=== PATIENT | female | born 1985 | race American Indian/Alaskan Native ===

== ENCOUNTER 2017-08-09 00:22 | Inpatient (IN) | payer MEDICAID ==
[2017-08-09] MEDS ORDERED: NORMOSOL-R PH 7.4 1,000 ML IV ONE (01:41)
[2017-08-09] MEDS ORDERED: XYLOCAINE 2% INFILTRATI ONE (01:42)
[2017-08-09] MEDS ORDERED: STADOL IV PRN (01:42)
[2017-08-09] MEDS ORDERED: BRETHINE SUB-Q PRN (01:42)
[2017-08-09] MEDS ORDERED: BRETHINE IVP PRN (01:42)
[2017-08-09] MEDS ORDERED: MINERAL OIL PO PRN (01:42)
[2017-08-09] MEDS ORDERED: ePHEDrine SULFATE IV PRN ×2 (01:42→04:45)
[2017-08-09] MEDS ORDERED: PITOCin/NS 20 UNIT/1000ML DRIP 20 UNITS/1,000 ML BAG IV SCH (02:00)
[2017-08-09] MEDS ORDERED: NORMOSOL-R PH 7.4 1,000 ML IV SCH (02:00)
[2017-08-09 02:12] LABS: Mean Corpuscular HGB Conc 29 % (30-34); Red Blood Count 4.06 M/mm3 (3.65-5.03)
[2017-08-09 02:16] LABS: Hematocrit 26.4 % (30.3-42.9); Hemoglobin 7.7 gm/dl (10.1-14.3); Mean Corpuscular Hemoglobin 19 pg (28-32); Mean Corpuscular Volume 65 fl (79-97); Platelet Count 202 K/mm3 (140-440); Red Cell Distribution Width 26.1 % (13.2-15.2)
[2017-08-09] MEDS ORDERED: NARCAN 2 MG/2 ML IV PRN (04:45)
--- NOTE | 2017-08-09 04:46 | Anesthesia Consultation ---
Anesthesia Consult and Med Hx Date of service: 08/09/17 - Pulmonary Exam CTA: Yes - Cardiac Exam Cardiac Exam: RRR - Pre-Operative Health Status ASA Pre-Surgery Classification: ASA2 Proposed Anesthetic Plan: Epidural, Spinal - Pulmonary Hx Smoking: No Hx Asthma: No COPD: No Hx Pneumonia: No - Cardiovascular System Hx Hypertension: No - Central Nervous System Hx Seizures: No Hx Psychiatric Problems: No - Endocrine Hx Renal Disease: No Hx End Stage Renal Disease: No Hx Hypothyroidism: No Hx Hyperthyroidism: No - Hematic Hx Anemia: Yes Hx Sickle Cell Disease: No - Other Systems Hx Alcohol Use: No
[2017-08-09] MEDS ORDERED: fentaNYL-BUPIV 2 MCG/ML-0.125% 200 MCG/100 ML BAG EPIDURAL SCH (05:00)
[2017-08-09] MEDS ORDERED: PITOCin/NS 30 UNIT/500ML 30,000 MILLIUNITS/500 ML BAG IV ONE (05:29)
--- NOTE | 2017-08-09 05:44 | History and Physical Report ---
History of Present Illness Date of examination: 08/09/17 (pt presented SROM ) Date of admission: 08/09/17 01:09 History of present illness: EDC Confirmation: 08/23/2017 Gestational Age: 9 3/7 weeks Past History : 11 Term Births: 10 Premature Births: 0 Living Children: 10 Para: 9 Mult. Births: 0 Prev : 0 Prev. attempt? 0 Aborta: 0 Elect. Ab: 0 Spont. Ab: 0 Ectopics: 0 # 1 Delivery date: 01/18/2002 Weeks Gestation: 38 labor: no Delivery type: Hours of labor: 17 Anesthesia type: IV Delivery location: [facility] Sex: Female weight: 5-5 Name: King # 2 Delivery date: 04/21/2003 Weeks Gestation: 38 labor: no Delivery type: Hours of labor: 8 Anesthesia type: IV Delivery location: [place] [facility] Sex: Female weight: 5-11 Name: Madisyn # 3 Delivery date: 11/03/2004 Weeks Gestation: 38 labor: no Delivery type: Hours of labor: 6 Anesthesia type: IV Delivery location: [facility] Sex: Female weight: 5-12 Name: Brooke # 4 Delivery date: 09/07/2005 Weeks Gestation: 38 labor: no Delivery type: Hours of labor: 8 Anesthesia type: epidural Delivery location: [facility] Sex: Female weight: 6-0 Name: Ronny # 5 Delivery date: 06/21/2006 Weeks Gestation: 38 labor: no Delivery type: Hours of labor: 9 Anesthesia type: IV Delivery location: [facility] Sex: Male weight: 5-12 Name: Marj # 6 Delivery date: 02/08/2008 Weeks Gestation: 38 labor: no Delivery type: Hours of labor: 7 Anesthesia type: IV Delivery location: [facility] Infant Sex: Female weight: 5-13 Name: Martina # 7 Delivery date: 08/16/2008 Weeks Gestation: 38 labor: no Delivery type: Hours of labor: 8 Anesthesia type: IV Delivery location: [facility] Infant Sex: Male weight: 5-11 Name: Swapnil # 8 Delivery date: 11/14/2009 Weeks Gestation: 38 labor: no Delivery type: Hours of labor: 4 Anesthesia type: none Delivery location: [facility] Inf[facility] Sex: Female weight: 5-12 Name: Roseann # 9 Delivery date: 01/01/2012 Weeks Gestation: 38 labor: no Delivery type: Hours of labor: 7 Anesthesia type: IV Delivery location: [facility] Sex: Male weight: 5-0 Name: Abby # 10 Delivery date: 03/10/2015 Weeks Gestation: 40 Delivery type: Vaginal Anesthesia type: epidural Delivery location: [facility] Inf[facility] Sex: female weight: 7.44 Comments: grandmultiparity 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 Past Medical History: Anemia migrane headaches Past Surgical History: Reviewed history from 09/06/2014 and no changes required: Negative Past Surgical History Past Medical History Abnormal PAP: negative FRIEDA Exposure: negative Infertility: negative Uterine Anomaly: negative Uterine Surgery (not C/S): negative Other Gynecologic Problems: negative Medical History Comments: migrane headaches anemia Social Hx: Patient is single Unemployed Infection History Partner hx. of genital herpes: no Varicella/Chicken Pox Status: Previous Disease Genetic History Congenital Heart Defect: Mom: no Evelia Disease: Mom: no Thalassemia Mom: no Neural Tube Defect Mom: no Down's Syndrome Mom: no Cayden-Sachs Mom: no Sickle Cell Disease/Trait Mom: no Hemophilia Mom: no Muscular Dystrophy Mom: no Cystic Fibrosis Mom: no [place] Chorea Mom: no Mental Retardation Mom: no Fragile X Mom: no Other Genetic/Chromosomal Disorder Mom: no Child w/other defect Mom: no Current Allergies (reviewed today): * TRAMADOL (Critical) Laboratory Results Date/Time Collected: 01/21/2017 Urine HCG: positive PHYSICAL EXAM HEENT: PERRLA, normal conjunctiva, external nose and nasal mucosa normal, oropharynx clear Neck/Thyroid: supple, thyroid normal Skin no significant abnormal lesions or rashes Chest: respiratory effort normal, clear to auscultation Breasts: normal without skin changes or masses CV: regular, normal S1-S2, no murmur, no rub, no gallop Abdomen: normal bowel sounds, soft, nontender, no HSM Musculoskeletal: grossly normal ROM in joints, no joint tenderness or muscle weakness Neuro: grossly normal DTRs, sensation, strength, cranial nerves Extremities: no clubbing, cyanosis, or edema 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 Vulva/Vagina: No lesions, normal BUS, normal rugae Cervix: No lesions; no cervical motion tenderness Uterus: normal size and position, midline, mobile Adnexae: no masses or tenderness Rectovaginal: no masses or tenderness Past History - Obstetrical History Expected Date of Delivery: 08/23/17 Actual Gestation: 38 Week(s) 0 Day(s) : 11 Para: 10 Number of Living Children: 10 Medications and Allergies Allergies Allergy/AdvReac Type Severity Reaction Status Date / Time No Known Allergies Allergy Verified 02/27/15 18:06 Home Medications Medication Instructions Recorded Confirmed Last Taken Type Ferrous Sulfate 1 tab PO DAILY 12/12/14 03/10/15 Unknown History Pnv,Calcium 72/Iron/Folic Acid 1 tab PO DAILY 12/12/14 03/10/15 Unknown History [Pnv Plus Multivit Tab] Ibuprofen [Motrin 800 MG tab] 800 mg PO TID PRN #30 tablet 03/11/15 Unknown Rx Active Meds: Active Medications Butorphanol Tartrate (Stadol) 2 mg IV Q2H PRN PRN Reason: Pain , Severe (7-10) Ephedrine Sulfate (Ephedrine Sulfate) 10 mg IV Q2M PRN PRN Reason: Hypotension Parenteral Electrolytes (Normosol-R Ph 7.4) 1,000 mls @ 125 mls/hr IV DIRECT JODIE Oxytocin/Sodium Chloride (Pitocin/Ns 20 Unit/1000ml Drip) 20 units in 1,000 mls @ 125 mls/hr IV DIRECT JODIE Fentanyl/Bupivacaine/Sodium Chlor (Fentanyl-Bupiv 2 Mcg/Ml-0.125%) 200 mcg in 100 mls @ 12 mls/hr EPIDURAL TITR JODIE; Protocol Oxytocin/Sodium Chloride (Pitocin/Ns 30 Unit/500ml) 30,000 milliunits in 500 mls @ 2 mls/hr IV DIRECT ONE; Protocol Stop: 08/19/17 15:28 Mineral Oil (Mineral Oil) 30 ml PO QHS PRN PRN Reason: Constipation Naloxone HCl (Narcan 2 Mg/2 Ml) 0.2 mg IV Q5M PRN PRN Reason: Respiratory sedation Terbutaline Sulfate (Brethine) 0.25 mg SUB-Q ONCE PRN PRN Reason: Hyperstimulation/Hypertonicity Terbutaline Sulfate (Brethine) 0.25 mg IVP ONCE PRN PRN Reason: Hyperstimulation/Hypertonicity - Vital Signs Vital signs: Vital Signs Pulse BP 150 H 119/77 08/09/17 00:42 08/09/17 00:42 Temp Pulse Resp BP Pulse Ox 97.9 F 142 H 18 121/77 100 08/09/17 00:44 08/09/17 05:38 08/09/17 00:44 08/09/17 05:35 08/09/17 05:38 - Physical Exam Breasts: Positive: deferred Cardiovascular: Regular rate Lungs: Positive: Normal air movement Abdomen: Positive: normal appearance, soft, normal bowel sounds Genitourinary (Female): Positive: normal external genitalia, normal perenium Vulva: both: normal Vagina: Positive: normal moisture Uterus: Positive: normal size Adnexa: both: normal Anus/Rectum: Positive: normal perianal skin Extremities: Positive: normal Deep Tendon Reflex Grade: Normal +2 - Obstetrical FHR: category 1 Uterine Contraction Monitor Mode: External Cervical Dilatation: 5 (this exam is post epidural placement) Cervical Effacement Percentage: 60 (clear fluid noted) station: -2 Uterine Contraction Pattern: Regular Uterine Tone Measurement Phase: Resting Uterine Contraction Intensity: Moderate Results Result Diagrams: 08/09/17 01:25 Abnormal lab results 08/09/17 08/09/17 Range/Units 01:25 01:25 WBC 12.8 H (4.5-11.0) K/mm3 Hgb 7.7 L (10.1-14.3) gm/dl Hct 26.4 L (30.3-42.9) % MCV 65 L (79-97) fl MCH 19 L (28-32) pg MCHC 29 L (30-34) % RDW 26.1 H (13.2-15.2) % Crossmatch See Detail All other labs normal. Strep Gp B BRIAN Negative HBsAg Screen Negative Negative *1 Rubella Antibodies, IgG 2.81 index Immune >0.99 *2 Non-immune <0.90 Equivocal 0.90 - 0.99 Immune >0.99 ABO Grouping A *3 Rh Factor Positive *4 Please note: Prior records for this patient's ABO / Rh type are not available for additional verification. Antibody Screen Negative Negative *5 RPR Non Reactive Non Reactive *6 WBC 6.8 x10E3/uL 3.4-10.8 *7 RBC 4.56 x10E6/uL 3.77-5.28 *8 Hemoglobin [L] 9.5 g/dL 11.1-15.9 *9 Hematocrit [L] 30.3 % 34.0-46.6 *10 MCV [L] 66 fL 79-97 *11 MCH [L] 20.8 pg 26.6-33.0 *12 MCHC [L] 31.4 g/dL 31.5-35.7 *13 RDW [H] 19.3 % 12.3-15.4 *14 Platelets [H] 393 x10E3/uL 150-379 *15 Neutrophils 68 % Not Estab. *16 Lymphs 24 % Not Estab. *17 Monocytes 7 % Not Estab. *18 Eos 1 % Not Estab. *19 Basos 0 % Not Estab. *20 ! Immature Cells <No Reported Value> *21 Neutrophils (Absolute) 4.6 x10E3/uL 1.4-7.0 *22 Lymphs (Absolute) 1.7 x10E3/uL 0.7-3.1 *23 Monocytes(Absolute) 0.5 x10E3/uL 0.1-0.9 *24 Eos (Absolute) 0.1 x10E3/uL 0.0-0.4 *25 Baso (Absolute) 0.0 x10E3/uL 0.0-0.2 *26 ! Immature Granulocytes 0 % Not Estab. *27 ! Immature Grans (Abs) 0.0 x10E3/uL 0.0-0.1 *28 ! NRBC <No Reported Value> *29 Hematology Comments: <No Reported Value> *30 Tests: (2) HB Solu + Rflx [facility] ([id number]) Hemoglobin (Hgb) Solubility Negative Negative *31 Tests: (3) Panel 039046 ([id number]) HIV Screen 4th Generation wRfx Non Reactive Non Reactive *32 Tests: (4) HCV Ab w/Rflx to Verification (263865) ! HCV Ab <0.1 s/co ratio 0.0-0.9 *33 Tests: (5) Comment: (039454) ! Comment: SPRCS *34 Non reactive HCV antibody screen is consistent with no HCV infection, unless recent infection is suspected or other evidence exists to indicate HCV infection. Tests: (6) Urine Culture, Routine ([id number]) Urine Culture, Routine Final report *35 Tests: (7) Result (041102) ! Result 1 MUG *36 Mixed urogenital nessa 10,000-25,000 colony forming units per mL Assessment and Plan 32yo @ 38 weeks with SROM clear fluid. GBS negative Orders in EMR. Anticipate vaginal delivery.
--- NOTE | 2017-08-09 06:13 | Procedure Note ---
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 Baby placed skin to skin on mom's abdomen. Cord clamped and cut. Placenta del complete and intact, 3 vessel cord. Pit IVFs 8/9, EBL 300, Wgt 6-11. Mom and baby remain LDR stable. - A at 1 minute: 8 at 5 minutes: 9 Infant Gender: Male (wgt 6-11)
[2017-08-09] MEDS ORDERED: TYLENOL PO PRN (06:14)
[2017-08-09] MEDS ORDERED: DULCOLAX PR PRN (06:14)
[2017-08-09] MEDS ORDERED: MILK OF MAGNESIA PO PRN (06:14)
[2017-08-09] MEDS ORDERED: ZOFRAN IV PRN (06:14)
[2017-08-09] MEDS ORDERED: PHENERGAN PO PRN (06:14)
[2017-08-09] MEDS ORDERED: BENADRYL PO PRN (06:14)
[2017-08-09] MEDS ORDERED: TUCKS PAD TP PRN (06:14)
[2017-08-09] MEDS ORDERED: LANSINOH TP PRN (06:14)
[2017-08-09] MEDS ORDERED: SODIUM CHLORIDE FLUSH SYRINGE 10 ML IV NR (07:00)
[2017-08-09 08:33] LABS: Hemoglobin 7.7 gm/dl (10.1-14.3)
[2017-08-09] MEDS: MOTRIN PO SCH ×2 (08:56→18:44)
[2017-08-09] MEDS: COLACE PO SCH ×2 (11:11→22:04)
[2017-08-09] MEDS: FEOSOL PO SCH ×2 (11:11→22:04)
[2017-08-09 18:21] LABS: Hematocrit 24.2 % (30.3-42.9); Hemoglobin 6.9 gm/dl (10.1-14.3)
[2017-08-10] MEDS: MOTRIN PO SCH ×3 (00:32→12:00)
[2017-08-10] MEDS ORDERED: M-M-R II VACCINE SUB-Q ONE (06:00)
[2017-08-10] MEDS ORDERED: BOOSTRIX IM ONE (06:00)
--- NOTE | 2017-08-10 08:37 | Progress Note ---
Assessment and Plan patient doing well w/o complaints. desires d/c home today. pt agrees to blood transfusion d/t chronic anemia, H&H dropped to 6.9/24.2 after delivery. VSSAF. Michael pop Will consider d/c home after transfusion. - Patient Problems (1) Anemia affecting in third trimester, antepartum Current Visit: No Status: Acute (2) Spontaneous vaginal delivery Current Visit: No Status: Acute Subjective - Subjective Date of service: 08/10/17 Principal diagnosis: day #1 s/p , Anemia Patient reports: appetite normal, voiding normally, pain well controlled, ambulating normally, no dizzy ambulation, no nauseated : doing well, bottle feeding Objective - Vital Signs Latest vital signs: Vital Signs Temp Pulse Resp BP BP Pulse Ox 08/10/17 00:55 98.2 F 81 18 100/60 99 08/09/17 21:02 98.1 F 18 110/74 08/09/17 17:00 98.3 F 98 H 18 118/76 100 08/09/17 12:41 97.7 F 98 H 18 105/75 100 Intake and Output 08/09/17 08/10/17 08/10/17 23:59 07:59 15:59 Intake Total 960 Output Total 1000 Balance -40 Intake: Oral 720 Intake, Free Water 240 Output: Urine 1000 Void 1000 Other: Total, Intake Amount 240 Total, Output Amount 500 # Voids Void 1 - Exam Breasts: Present: normal Cardiovascular: Present: Regular rate Lungs: Present: Clear to auscultation, Normal air movement Abdomen: Present: normal appearance, soft Vulva: both: normal Uterus: Present: normal, firm Extremities: Present: normal Deep Tendon Reflex Grade: Normal +2 - Labs Labs: Abnormal lab results 08/09/17 08/09/17 Range/Units 08:00 17:52 Hgb 7.7 L 6.9 L (10.1-14.3) gm/dl Hct 26.0 L 24.2 L (30.3-42.9) %
[2017-08-10] MEDS ORDERED: NACL 0.9% 1000 ML 1,000 ML ONE (08:44)
[2017-08-10] MEDS ORDERED: NACL 0.9% 500 ML 500 ML IV SCH (09:00)
[2017-08-10] MEDS: COLACE PO SCH (11:21)
[2017-08-10] MEDS: FEOSOL PO SCH (11:21)
[2017-08-10 15:56] LABS: Hematocrit 28.6 % (30.3-42.9); Hemoglobin 8.8 gm/dl (10.1-14.3)
--- NOTE | 2017-08-10 16:50 | Discharge Summary ---
Providers - Providers Date of Admission: 08/09/17 01:09 Date of discharge: 08/10/17 (desires d/c home today) Attending physician: SONI KRAMER Primary care physician: SONI KRAMER Hospitalization Reason for admission: active labor, rupture of membranes Delivery: Episiotomy: none Laceration: none Other procedures: none complications: other (Anemia- transfusion 2 units ) Discharge diagnosis: IUP at term delivered baby: male Hospital course: uncomplicated vaginal del Condition at discharge: Good Disposition: DC-01 TO HOME OR SELFCARE - Discharge Diagnoses (1) Anemia affecting in third trimester, antepartum Status: Acute (2) Spontaneous vaginal delivery Status: Acute Plan - Discharge Medications Prescriptions: Ferrous Sulfate [Feosol 325 MG tab] 325 mg PO BID #90 tablet Ibuprofen [Motrin 800 MG tab] 800 mg PO Q8HR PRN #30 tablet PRN Reason: Pain Lidocain2.5%/Prilocai2.5% [Emla] 5 gm TP ONCE PRN #1 tube PRN Reason: Pain - Provider Discharge Summary Activity: routine, no sex for 6 weeks, no heavy lifting 4 weeks, no strenuous exercise Diet: routine Instructions: routine Additional instructions: [] Smoking cessation referral if applicable(refer to patient education folder for contact #) [] Refer to [facility]'s [facility] Booklet Call your doctor immediately for: * Fever > 100.5 * Heavy vaginal bleeding ( >1 pad per hour) * Severe persistent headache * Shortness of breath * Reddened, hot, painful area to leg or breast * Drainage or odor from incision. * Keep incision clean and dry at all times and follow doctor's instructions regarding bathing/showering - Follow up plan Follow up: SONI KRAMER MD [Primary Care Provider] - 7 Days (Congratulations!! Please call [phone] to schedule your son's circ in 1 week and your visit in 4 weeks. Bring EMLA cream to your son's visit and await further instruction. Call for any questions or concers.) Forms: [facility] Discharge Summary
[2017-08-10 18:10] VITALS: BP 125/82
== END 2017-08-10 17:59 | disposition home or self-care (01) | DRG 775 ==
LOC: TRG 00:22 → LD 01:09 → TRG 01:09 → OB 08:41
PROVIDERS: ADMIT Obstetrics & Gynecology; ATTEND Obstetrics & Gynecology
PROC: 10E0XZZ Delivery of Products of Conception, External Approach (ICD-10-PCS; principal; 2017-08-09)
PROC: 3E0R3BZ Introduction of Anesthetic Agent into Spinal Canal, Percutaneous Approach (ICD-10-PCS; 2017-08-09)
PROC: 00HU33Z Insertion of Infusion Device into Spinal Canal, Percutaneous Approach (ICD-10-PCS; 2017-08-09)
PROC: 3E0234Z Introduction of Serum, Toxoid and Vaccine into Muscle, Percutaneous Approach (ICD-10-PCS; 2017-08-10)
PROC: 30233N1 Transfusion of Nonautologous Red Blood Cells into Peripheral Vein, Percutaneous Approach (ICD-10-PCS; 2017-08-10)
DX: O42.02 Full-term premature rupture of membranes, onset of labor within 24 hours of rupture (principal); O99.354 Diseases of the nervous system complicating childbirth; Z3A.38 38 weeks gestation of pregnancy; Z37.0 Single live birth; Z23 Encounter for immunization; O99.02 Anemia complicating childbirth; D64.9 Anemia, unspecified; G43.909 Migraine, unspecified, not intractable, without status migrainosus; R71.0 Precipitous drop in hematocrit
CPT/HCPCS: 36415; 85014; 85018; 85027; 86592; 86850; 86900; 86901; 86922; 90471; 90707; 90715; J2590; J7030; J7040; P9016

== ENCOUNTER 2017-10-12 06:17 | Day surgery (SDC) | payer MEDICAID ==
--- NOTE | 2017-10-07 16:21 | History and Physical Report ---
History of Present Illness Date of examination: 10/07/17 Date of admission: 10/12/17 Chief complaint: here for tubal ligation History of present illness: All risk/benefits/alternatives were d/w pt and questions were addressed and answered. I d/w different methods of tubal ligation and she desires salpingectomy. Consents signed and placed on the chart. History Total Preg.: 11 Full Term: 11 Premature: 0 Ab. Induced: 0 Ab. Spontaneous: 0 Ectopics: 0 Multiple Births: 0 Livin #1 Delivery date: 01/18/2002 Gestational age at delivery: 38 weeks Length of labor: 17 hours Type of anesthesia: IV Delivery type: weight: 5-5 Sex: Female Delivery location: [facility] labor: no #2 Delivery date: 04/21/2003 Gestational age at delivery: 38 weeks Length of labor: 8 hours Type of anesthesia: IV Delivery type: weight: 5-11 Sex: Female Delivery location: [place] labor: no #3 Delivery date: 11/03/2004 Gestational age at delivery: 38 weeks Length of labor: 6 hours Type of anesthesia: IV Delivery type: weight: 5-12 Sex: Female Delivery location: [facility] labor: no #4 Delivery date: 09/07/2005 Gestational age at delivery: 38 weeks Length of labor: 8 hours Type of anesthesia: epidural Delivery type: weight: 6-0 Sex: Female Delivery location: [facility] labor: no #5 Delivery date: 06/21/2006 Gestational age at delivery: 38 weeks Length of labor: 9 hours Type of anesthesia: IV Delivery type: weight: 5-12 Sex: Male Delivery location: [facility] labor: no #6 Delivery date: 02/08/2008 Gestational age at delivery: 38 weeks Length of labor: 7 hours Type of anesthesia: IV Delivery type: weight: 5-13 Sex: Female Delivery location: [facility] labor: no # 7 Delivery date: 08/16/2008 Weeks Gestation: 38 labor: no Delivery type: Hours of labor: 8 Anesthesia type: IV Delivery location: [facility] Sex: Male weight: 5-11 Name: Swapnil # 8 Delivery date: 11/14/2009 Weeks Gestation: 38 labor: no Delivery type: Hours of labor: 4 Anesthesia type: none Delivery location: [facility] Sex: Female weight: 5-12 Name: Roseann # 9 Delivery date: 01/01/2012 Weeks Gestation: 38 labor: no Delivery type: Hours of labor: 7 Anesthesia type: IV Delivery location: [facility] Sex: Male weight: 5-0 Name: Abby # 10 Delivery date: 03/10/2015 Weeks Gestation: 40 Delivery type: Vaginal Anesthesia type: epidural Delivery location: [facility] Infant Sex: female weight: 7.44 Comments: grandmultiparity 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 # 11 08/09/2017 Vaginal Past Medical History: Anemia migrane headaches Past Surgical History: Reviewed history from 09/06/2014 and no changes required: Negative Past Surgical History Past Medical History Abnormal PAP: negative FRIEDA Exposure: negative Infertility: negative Uterine Anomaly: negative Uterine Surgery (not C/S): negative Other Gynecologic Problems: negative Medical History Comments: migrane headaches anemia Social Hx: Patient is single Unemployed Infection History Partner hx. of genital herpes: no Varicella/Chicken Pox Status: Previous Disease Genetic History Congenital Heart Defect: Mom: no Evelia Disease: Mom: no Thalassemia Mom: no Neural Tube Defect Mom: no Down's Syndrome Mom: no Cayden-Sachs Mom: no Sickle Cell Disease/Trait Mom: no Hemophilia Mom: no Muscular Dystrophy Mom: no Cystic Fibrosis Mom: no [place] Chorea Mom: no Mental Retardation Mom: no Fragile X Mom: no Other Genetic/Chromosomal Disorder Mom: no Child w/other defect Mom: no Current Allergies (reviewed today): * TRAMADOL (Critical) Past History Past Medical History: other (see hpi) Past Surgical History: other (see hpi) 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) Family/Genetic History: other (see hpi) Social history: other (see hpi) - Obstetrical History : 11 Para: 11 Number of Living Children: 11 Medications and Allergies Allergies Allergy/AdvReac Type Severity Reaction Status Date / Time No Known Allergies Allergy Verified 02/27/15 18:06 Home Medications Medication Instructions Recorded Confirmed Last Taken Type Ferrous Sulfate 1 tab PO DAILY 12/12/14 08/09/17 Unknown History Pnv,Calcium 72/Iron/Folic Acid 1 tab PO DAILY 07/29/15 03/26/18 Unknown History [Pnv Plus Multivit Tab] Ibuprofen [Motrin 800 MG tab] 800 mg PO TID PRN #30 tablet 03/11/15 08/09/17 Unknown Rx Ferrous Sulfate [Feosol 325 MG tab] 325 mg PO BID #90 tablet 08/10/17 Unknown Rx Ibuprofen [Motrin 800 MG tab] 800 mg PO Q8HR PRN #30 tablet 08/10/17 Unknown Rx Lidocain2.5%/Prilocai2.5% [Emla] 5 gm TP ONCE PRN #1 tube 08/10/17 Unknown Rx Review of Systems All systems: negative - Physical Exam Cardiovascular: Normal S1, Normal S2 Lungs: Positive: Clear to auscultation, Normal air movement Abdomen: Positive: normal appearance, soft, normal bowel sounds. Negative: distention, tenderness, guarding Genitourinary (Female): Positive: other (deferred until EUA) Extremities: Positive: normal. Negative: tenderness, edema Deep Tendon Reflex Grade: Normal +2 Results All other labs normal. Assessment and Plan - Patient Problems (1) Encounter for sterilization Status: Acute Plan to address problem: -admit for above stated procedue -consents signed and placed on the chart
[~2017-10-12 06:17] MED LIST: ANCEF/STERILE WATER 2 GM/20 ML 2 GM/20 ML SYRINGE IV NR; MARCAINE 0.5% INFILTRATI ONE; NACL 0.9% IR ONE
[2017-10-12] MEDS ORDERED: NACL BACTERIOSTATIC INFILTRATI ONE (06:40)
[2017-10-12] MEDS ORDERED: ZOFRAN IV PRN (06:58)
[2017-10-12] MEDS ORDERED: LACTATED RINGERS 1,000 ML IV SCH (07:00)
[2017-10-12] MEDS ORDERED: VERSED IV NR (07:00)
[2017-10-12 07:16] LABS: Hematocrit 35.7 % (30.3-42.9); Mean Corpuscular HGB Conc 31 % (30-34); Mean Corpuscular Volume 72 fl (79-97); Platelet Count 285 K/mm3 (140-440); Red Blood Count 4.97 M/mm3 (3.65-5.03)
[2017-10-12] MEDS ORDERED: MARCAINE 0.5% 30 ML INFILTRATI ONE (07:16)
[2017-10-12 07:20] LABS: Mean Corpuscular Hemoglobin 22 pg (28-32); Red Cell Distribution Width 20.6 % (13.2-15.2)
[2017-10-12] MEDS ORDERED: DIPRIVAN 10 MG/ML IV ONE (07:22)
[2017-10-12] MEDS ORDERED: XYLOCAINE MPF 2% ONE (07:23)
[2017-10-12] MEDS ORDERED: DILAUDID ONE (07:23)
[2017-10-12] MEDS ORDERED: ZEMURON IV ONE (07:23)
[2017-10-12] MEDS ORDERED: MARCAINE 0.5% INFILTRATI ONE ×2 (08:00)
[2017-10-12] MEDS ORDERED: DECADRON ONE (08:00)
[2017-10-12] MEDS ORDERED: ZOFRAN ONE (08:00)
[2017-10-12] MEDS ORDERED: NEOSTIGMINE ONE (08:11)
[2017-10-12] MEDS ORDERED: ROBINUL ONE (08:11)
[2017-10-12] MEDS ORDERED: NACL 0.9% IR ONE (08:18)
[2017-10-12] MEDS ORDERED: LACTATED RINGERS 1,000 ML ONE (08:27)
--- NOTE | 2017-10-12 08:57 | Discharge Summary ---
Providers - Providers Date of discharge: 10/12/17 Attending physician: ASHUTOSH THOMPSON Primary care physician: AMY PARRA Hospitalization Reason for admission: other Procedure: bilateral tubal ligation Procedure details: Preoperative report Hospital course: She was admitted for above-stated procedure. Patient underwent salpingectomy that was not complicated. After recovery is complete and she has made discharge criteria she was discharged from the PACU. Patient already has follow -up appointment in office in 1 week for incision check. Condition at discharge: Good Disposition: DC-01 TO HOME OR SELFCARE - Discharge Diagnoses (1) Encounter for sterilization Status: Acute Plan - Discharge Medications Prescriptions: Ibuprofen 800 mg PO Q6HR #30 tablet oxyCODONE /ACETAMINOPHEN [Percocet 5/325] 1 tab PO Q4HR #30 tab - Provider Discharge Summary Activity: routine, no sex for 6 weeks, no heavy lifting 4 weeks Additional instructions: [] Smoking cessation referral if applicable(refer to patient education folder for contact #) [] Refer to [facility]'s [facility] Booklet Call your doctor immediately for: * Fever > 100.5 * Heavy vaginal bleeding ( >1 pad per hour) * Severe persistent headache * Shortness of breath * Reddened, hot, painful area to leg or breast * Drainage or odor from incision. * Keep incision clean and dry at all times and follow doctor's instructions regarding bathing/showering - Follow up plan Follow up: AMY PARRA MD [Primary Care Provider] - 7 Days
--- NOTE | 2017-10-12 08:57 | Operative Report ---
Operative Report Operative Report: Date of procedure: 10/12/2017 Pre-operative diagnosis: Desires permanent sterilization Post-operative diagnosis: Same Procedure name(s): Bilateral partial salpingectomy Surgeon: Dr. Herrera Folder Seamer Automatic: JACKELINE Anesthesia: Gen. endotracheal anesthesia EBL: Minimal Urine output: 100 mL of clear urine at the beginning of the procedure for straight catheterization Fluids: 800 mL Findings: Grossly normal fallopian tubes and ovaries bilaterally normal uterus normal cervix normal vagina Indications: Patient desires permanent sterilization. All risks benefits and alternatives were discussed with the patient. Patient desired partial salpingectomy. Consents were signed and placed on the chart. Procedure: Patient was taken to the operating room and which she was placed under general endotracheal anesthesia. Patient was then prepped and draped in sterile fashion and placed in dorsal lithotomy position in Hunter stirrups. Attention was then turned to the vagina in which a Humi uterine manipulator was placed. Patient underwent straight catheterization. Attention was then turned to the umbilicus and which an infraumbilical incision was made with the scalpel 5mm trocar was placed using direct visualization with the camera. Abdomen was then insufflated with gas. Under direct visualization 2 5mm trochars were placed. The left fallopian tube was grasp with a grasper elevated ligated with the LigaSure device and transected with a portion of the left tube passed off to pathology. This was repeated on the right side. Excellent hemostasis was noted. After tubal ligation was completed all instruments were removed from the abdomen under direct visualization. All gas was also released from the abdomen. The skin was approximated with 4-0 Monocryl in a subcuticular stitch. The patient tolerated procedure well. Sponge, lap, and needle counts were all correct x3 the patient was taken to the recovery room awake and in stable condition.
[2017-10-12] MEDS ORDERED: PERCOCET 5/325 PO PRN (09:04)
[2017-10-12] MEDS: DILAUDID IV PRN ×2 (09:16→09:29)
--- NOTE | 2017-10-12 09:39 | Anesthesia Consultation ---
Anesthesia Consult and Med Hx Date of service: 10/12/17 - Airway Anesthetic Teeth Evaluation: Good ROM Head & Neck: Adequate Mental/Hyoid Distance: Adequate Mallampati Class: Class I Intubation Access Assessment: Good - Pulmonary Exam CTA: Yes - Cardiac Exam Cardiac Exam: RRR - Pre-Operative Health Status ASA Pre-Surgery Classification: ASA1 Proposed Anesthetic Plan: General - Pulmonary Hx Smoking: No Hx Asthma: No COPD: No Hx Pneumonia: No - Cardiovascular System Hx Hypertension: No - Central Nervous System Hx Seizures: Yes (Jean to Preeclampsia or Tramadol) Hx Psychiatric Problems: No - Endocrine Hx Renal Disease: No Hx End Stage Renal Disease: No Hx Hypothyroidism: No Hx Hyperthyroidism: No - Hematic Hx Anemia: Yes Hx Sickle Cell Disease: No - Other Systems Hx Alcohol Use: No Hx Cancer: No
--- NOTE | 2017-10-12 09:39 | Anesthesia Day of Surgery ---
Anesthesia Day of Surgery - Day of Surgery Patient Examined: Yes Patient H&P Reviewed: Yes Patient is NPO: Yes
--- NOTE | 2017-10-12 09:40 | Post Anesthesia Evaluation ---
- Post Anesthesia Evaluation Patient Participated: Yes Airway Patent: Yes Stable Respiratory Function: Yes Nausea/Vomiting: No Temp > 96.8F: Yes Pain Manageable: Yes Adequeate Hydration: Yes Anesthesia Complications: No
[2017-10-12 10:47] VITALS: BP 112/76
== END 2017-10-12 10:40 | disposition home or self-care (01) ==
LOC: OR 06:17
PROVIDERS: ATTEND Obstetrics & Gynecology
DX: Z30.2 Encounter for sterilization (principal); N83.8 Other noninflammatory disorders of ovary, fallopian tube and broad ligament
CPT/HCPCS: 36415; 58661; 81025; 85027; 86850; 86900; 86901; 86902; 86922; 88302; J0690; J1100; J1170; J2250; J2405; J2704; J2710; J7120

== ENCOUNTER 2020-12-05 14:33 | Outpatient (CLI) | payer MEDICAID ==
[2020-12-05 15:18] LABS: Bilirubin,Urine NEG (Negative); Blood,Urine NEG (Negative); Color,Urine Yellow (Yellow); Mucus,Urine FEW /HPF; Protein,Urine <15 mg/dL mg/dL (Negative); WBC,Urine < 1.0 /HPF (0.0-6.0)
[2020-12-05 15:33] VITALS: BP 112/75
== END 2020-12-05 16:25 | disposition home or self-care (01) ==
LOC: TRG 14:33 → APU 14:35 → TRG 16:25
PROVIDERS: ATTEND Obstetrics & Gynecology
DX: O09.893 Supervision of other high risk pregnancies, third trimester (principal); Z3A.39 39 weeks gestation of pregnancy
CPT/HCPCS: 36415; 59025; 81001; 84112

== ENCOUNTER 2020-12-09 00:05 | Inpatient (IN) | payer MEDICAID ==
[2020-12-09] MEDS ORDERED: CARBOPROST TROMETHAMINE 250 MCG/1 ML INJ IM PRN (01:56)
[2020-12-09] MEDS ORDERED: BUTORPHANOL 2 MG/1 ML INJ IV PRN (01:56)
[2020-12-09] MEDS ORDERED: LIDOCAINE (2%) 20 MG/1 ML VIAL 20 ML MDV INFILTRATI ONE ×2 (01:56→06:55)
[2020-12-09] MEDS ORDERED: ONDANSETRON 4 MG/2 ML INJ IV PRN ×2 (01:56→12:37)
[2020-12-09] MEDS ORDERED: ACETAMINOPHEN 500 MG TAB PO PRN (01:56)
[2020-12-09] MEDS ORDERED: LOPERAMIDE 2 MG CAP PO PRN (01:56)
[2020-12-09] MEDS ORDERED: PROMETHAZINE 25 MG TAB PO PRN ×2 (01:56→12:37)
[2020-12-09] MEDS ORDERED: METHYLERGONOVINE MALEATE 0.2 MG/ML VIAL IM PRN (01:56)
[2020-12-09] MEDS ORDERED: miSOPROStol 200 MCG TAB PR PRN (01:56)
[2020-12-09] MEDS ORDERED: OXYTOCIN 10 UNIT/1 ML INJ IM PRN (01:56)
[2020-12-09] MEDS ORDERED: TERBUTALINE 1 MG/1 ML INJ SUB-Q PRN (01:56)
[2020-12-09] MEDS ORDERED: fentaNYL 100 MCG/2 ML INJ IV PRN (01:56)
[2020-12-09] MEDS ORDERED: NALOXONE 0.4 MG/1 ML INJ IV PRN (01:56)
[2020-12-09] MEDS ORDERED: MINERAL OIL 30 ML ORAL LIQD PO PRN (01:56)
[2020-12-09] MEDS ORDERED: ePHEDrine SULFATE 50 MG/1 ML INJ IV PRN ×2 (01:56→08:00)
[2020-12-09] MEDS ORDERED: OXYTOCIN DRIP 30 UNITS/500 ML BAG IV SCH (02:00)
--- NOTE | 2020-12-09 02:12 | History and Physical Report ---
History of Present Illness Date of examination: 12/09/20 Date of admission: 12/09/2020 Chief complaint: I'm having contractions. History of present illness: Pt presented to triage with c/o contractions. It was noted during the triage visit that she was having contractions every 2-6 minutes with occasional variables. A BPP was completed and found to be 6/8, off for JESSICA, which was 5.2. She was admitted for IOL d/t oligohydramnios at term. EDC Confirmation: 12/11/2020 Gestational Age: 39.5 weeks on admission Past History : 12 Term Births: 11 Premature Births: 0 Living Children: 11 Para: 11 Mult. Births: 0 Prev : 0 Prev. attempt? 0 Aborta: 0 Elect. Ab: 0 Spont. Ab: 0 Ectopics: 0 # 1 Delivery date: 01/18/2002 Weeks Gestation: 38 labor: no Delivery type: Hours of labor: 17 Anesthesia type: IV Delivery location: [facility] Sex: Female weight: 5-5 Name: King # 2 Delivery date: 04/21/2003 Weeks Gestation: 38 labor: no Delivery type: Hours of labor: 8 Anesthesia type: IV Delivery location: [place] Sex: Female weight: 5-11 Name: Madisyn # 3 Delivery date: 11/03/2004 Weeks Gestation: 38 labor: no Delivery type: Hours of labor: 6 Anesthesia type: IV Delivery location: [facility] Sex: Female weight: 5-12 Name: Brooke # 4 Delivery date: 09/07/2005 Weeks Gestation: 38 labor: no Delivery type: Hours of labor: 8 Anesthesia type: epidural Delivery location: [facility] Sex: Female weight: 6-0 Name: Ronny # 5 Delivery date: 06/21/2006 Weeks Gestation: 38 labor: no Delivery type: Hours of labor: 9 Anesthesia type: IV Delivery location: [facility] Infant Sex: Male weight: 5-12 Name: Marj # 6 Delivery date: 02/08/2008 Weeks Gestation: 38 labor: no Delivery type: Hours of labor: 7 Anesthesia type: IV Delivery location: [facility] Infant Sex: Female weight: 5-13 Name: Martina # 7 Delivery date: 08/16/2008 Weeks Gestation: 38 labor: no Delivery type: Hours of labor: 8 Anesthesia type: IV Delivery location: [facility] Infant Sex: Male weight: 5-11 Name: Swapnil # 8 Delivery date: 11/14/2009 Weeks Gestation: 38 labor: no Delivery type: Hours of labor: 4 Anesthesia type: none Delivery location: [facility] Infant Sex: Female weight: 5-12 Name: Serinity # 9 Delivery date: 01/01/2012 Weeks Gestation: 38 labor: no Delivery type: Hours of labor: 7 Anesthesia type: IV Delivery location: [facility] Infant Sex: Male weight: 5-0 Name: Mrayion # 10 Delivery date: 03/10/2015 Weeks Gestation: 40 Delivery type: Vaginal Anesthesia type: epidural Delivery location: [facility] Sex: female weight: 7.44 Comments: grandmultiparity 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 # 11 Delivery date: 08/09/2017 Weeks Gestation: 38 Delivery type: Vaginal Anesthesia type: epidural Sex: male weight: 6.69 Comments: none Past Medical History: Anemia migrane headaches Seizures (2015) hospitalized x 1 week probable post- eclampsia requiring tracheostomy secondary neck swelling no seizures since Past Surgical History: Tubal Ligation/ Salpingectomy(2017) Tracheostomy (2014) Past Medical History 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 Infection History Hx of STD: none HIV Risk Eval: no Hepatitis B Risk Eval: low risk Personal hx. of genital herpes: no Genetic History ADVANCED MATERNAL AGE Congenital Heart Defect: Mom: no Dad: no Evelia Disease: Mom: no Dad: no Thalassemia Mom: no Dad: no Neural Tube Defect Mom: no Dad: no Down's Syndrome Mom: no Dad: no Cayden-Sachs Mom: no Dad: no Sickle Cell Disease/Trait Mom: no Dad: no Hemophilia Mom: no Dad: no Muscular Dystrophy Mom: no Dad: no Cystic Fibrosis Mom: no Dad: no Vashti Chorea Mom: no Dad: no Mental Retardation Mom: no Dad: no Fragile X Mom: no Dad: no Other Genetic/Chromosomal Disorder Mom: no Dad: no Child w/other defect Mom: no Dad: no Enviromental Exposures Xray Exposure: no Medication, drug, or alcohol use since LMP: no Chemical/Other Exposure: no Exposure to Cat Liter: no Hx of Parvovirus (Fifth Disease): no Family History Summary: Other Family Member - Has Family History of Hypertension - Entered On: 04/30/2020 Other Family Member - Has Family History of CVA or Stroke - Entered On: 04/30/2020 Other Family Member - Has Family History of Coronary Heart Disease - Entered On: 04/30/2020 Social History: Patient is Unemployed Smoking History: Patient has never smoked. Current Allergies: * TRAMADOL (Critical) Past History Past Medical History: seizure (Last seizure in 2014.), migraines, hematologic disorders (Anemia. Has had iron transfusion X3 during this . ), other (Tracheotomy in 2014) Past Surgical History: [employer]/uterine surgery (Salpingectomy) [employer] History: abnormal PAP smear (LEEP in 01/2020) Family/Genetic History: heart disease, hypertension, stroke Social history: no significant social history - Obstetrical History Expected Date of Delivery: 12/11/20 Actual Gestation: 39 Week(s) 5 Day(s) : 12 Para: 11 Hx # Term Pregnancies: 11 Number of Pregnancies: 0 Spontaneous Abortions: 0 Induced : 0 Number of Living Children: 11 Medications and Allergies Allergies Allergy/AdvReac Type Severity Reaction Status Date / Time tramadol Allergy Seizure Verified 10/08/17 14:34 Home Medications Medication Instructions Recorded Confirmed Last Taken Type Ibuprofen [Ibuprofen 800] 800 mg PO Q6HR #30 tablet 10/12/17 Unknown Rx oxyCODONE /ACETAMINOPHEN [Percocet 1 tab PO Q4HR #30 tab 10/12/17 Unknown Rx 5/325] Active Meds: Active Medications Acetaminophen (Acetaminophen 500 Mg Tab) 1,000 mg PO Q6H PRN PRN Reason: Pain, Mild (1-3) Butorphanol Tartrate (Butorphanol 2 Mg/1 Ml Inj) 1 mg IV Q2H PRN PRN Reason: Pain, Moderate(4-6) LABOR PAIN Carboprost Tromethamine (Carboprost Tromethamine 250 Mcg/1 Ml Inj) 250 mcg IM ONCE PRN PRN Reason: Uterine Bleeding Ephedrine Sulfate (Ephedrine Sulfate 50 Mg/1 Ml Inj) 10 mg IV Q2M PRN PRN Reason: Hypotension Fentanyl (Fentanyl 100 Mcg/2 Ml Inj) 100 mcg IV Q2H PRN PRN Reason: Pain,Severe (7-10) LABOR PAIN Oxytocin/Sodium Chloride (Pitocin/Ns 30 Unit/500ml) 30 units in 500 mls @ 1 mls/hr IV TITR JODIE; Protocol Lactated Ringer's (Lactated Ringers) 1,000 mls @ 125 mls/hr IV DIRECT JODIE Oxytocin/Sodium Chloride (Pitocin/Ns 30 Unit/500ml) 30 units in 500 mls @ 40 mls/hr IV TITR JODIE; Protocol Loperamide HCl (Loperamide 2 Mg Cap) 2 mg PO ONCE PRN PRN Reason: give with Hemabate Methylergonovine Maleate (Methylergonovine Maleate 0.2 Mg/Ml Vial) 0.2 mg IM ONCE PRN PRN Reason: Uterine Bleeding Mineral Oil (Mineral Oil 30 Ml Oral Liqd) 30 ml PO QHS PRN PRN Reason: Constipation Misoprostol (Misoprostol 200 Mcg Tab) 800 mcg DE ONCE PRN PRN Reason: Uterine Bleeding Naloxone HCl (Naloxone 0.4 Mg/1 Ml Inj) 0.1 mg IV Q2MIN PRN PRN Reason: Res Rate </= 8 or 02 SAT < 92% Ondansetron HCl (Ondansetron 4 Mg/2 Ml Inj) 4 mg IV Q8H PRN PRN Reason: Nausea And Vomiting Oxytocin (Oxytocin 10 Unit/1 Ml Inj) 10 unit IM ONCE PRN PRN Reason: Uterine Bleeding Promethazine HCl (Promethazine 25 Mg Tab) 25 mg PO Q6H PRN PRN Reason: Nausea And Vomiting Terbutaline Sulfate (Terbutaline 1 Mg/1 Ml Inj) 0.25 mg SUB-Q ONCE PRN PRN Reason: Hyperstimulation/Hypertonicity Review of Systems All systems: negative - Vital Signs Vital signs: Vital Signs Temp Pulse 98.3 F 114 H 12/09/20 00:19 12/09/20 00:19 Temp Pulse Resp BP Pulse Ox 98.3 F 114 H 120/77 12/09/20 00:19 12/09/20 00:26 12/09/20 00:26 - Physical Exam Breasts: Positive: deferred Cardiovascular: Regular rate Lungs: Positive: Normal air movement Abdomen: Positive: normal appearance, soft Genitourinary (Female): Positive: normal external genitalia, normal perenium Vulva: both: normal Vagina: Positive: normal moisture Uterus: Positive: normal size Extremities: Positive: normal - Obstetrical FHR: category 2 (A late and variable decelerations noted. ) Uterine Contraction Monitor Mode: External Cervical Dilatation: 0.5 (Per credit collection specialist exam. ) Cervical Effacement Percentage: 20 station: -4 Uterine Contraction Pattern: Regular Uterine Tone Measurement Phase: Resting Uterine Contraction Intensity: Moderate Results All other labs normal. GBS NEGATIVE HBsAg Screen Negative Negative *1 RPR Non Reactive Non Reactive *2 Rubella Antibodies, IgG 2.36 index Immune >0.99 *3 Non-immune <0.90 Equivocal 0.90 - 0.99 Immune >0.99 ABO Grouping A *4 Rh Factor Positive *5 Please note: Prior records for this patient's ABO / Rh type are not available for additional verification. Antibody Screen Negative Negative *6 <No Reported Value> *27 ! Immature Grans (Abs) <No Reported Value> *28 ! NRBC [H] 2 % 0 - 0 *29 Hematology Comments: Note: *30 Manual differential was performed. Tests: (2) HB Solu + Rflx Frac ([id number]) Hemoglobin (Hgb) Solubility Negative Negative *31 Tests: (3) HIV Ag/Ab with Reflex ([id number]) HIV Screen 4th Generation wRfx Non Reactive Non Reactive *32 Tests: (4) HCV Antibody reflex to BRIAN ([id number]) ! HCV Ab <0.1 s/co ratio 0.0-0.9 *33 Tests: (5) Interpretation: ([id number]) ! Interpretation: SPRCS *34 Negative Not infected with HCV, unless recent infection is suspected or other evidence exists to indicate HCV infection. Assessment and Plan A: 35 y.o. @ 39.5 wks, oligohydramnios at term. Category 2 tracing. History of PPH, anemia. - Patient Problems (1) Oligohydramnios in third trimester Current Visit: Yes Status: Acute Qualifiers: Fetus number: single or unspecified fetus Qualified Code(s): O41.03X0 - Oligohydramnios, third trimester, not applicable or unspecified Plan to address problem: Admit for IOL. Continue to monitor status through EFM. (2) with 39 completed weeks gestation Current Visit: Yes Status: Acute Plan to address problem: Admit to labor and delivery. Start IV. Draw admission labs. Initiate IOL with low dose Pitocin. Anticipate . (3) History of hemorrhage, currently in third trimester Current Visit: Yes Status: Acute Plan to address problem: Will have hemorrhage medications at bedside during delivery. Type and Screen drawn on admission. Consent for blood transfusion on chart. (4) Anemia affecting Current Visit: Yes Status: Acute Qualifiers: Trimester: unspecified trimester Qualified Code(s): O99.019 - Anemia complicating , unspecified trimester Plan to address problem: Type and Screen drawn. Blood Transfusion consent on chart.
--- NOTE | 2020-12-09 02:16 | Ultrasound Report ---
ULTRASOUND OBSTETRIC LIMITED ULTRASOUND BIOPHYSICAL PROFILE INDICATION / CLINICAL INFORMATION: well being. COMPARISON: None available. FINDINGS: BREATHING MOVEMENT = 2 GROSS BODY MOVEMENT = 2 TONE = 2 QUALITATIVE AMNIOTIC FLUID VOLUME = 0 TOTAL BIOPHYSICAL SCORE = 6/8 AMNIOTIC FLUID INDEX (cm) = 5.2 PRESENTATION: Cephalic. HEART RATE (beats per minute): 139 ADDITIONAL FINDINGS: None. IMPRESSION: 1. Biophysical Score = 6/8 2. Amniotic fluid index of 5.2 cm. Signer Name: Hank Guerra MD Signed: 12/09/2020 2:11 AM Workstation Name: [id number]
[2020-12-09] MEDS: LACTATED RINGERS 1,000 ML IV SCH ×2 (03:32→07:09)
[2020-12-09 04:48] LABS: Hemoglobin 11.1 gm/dl (10.1-14.3); Mean Corpuscular HGB Conc 32 % (30-34); Mean Corpuscular Volume 76 fl (79-97); Red Blood Count 4.62 M/mm3 (3.65-5.03)
[2020-12-09 05:16] LABS: Platelet Count 170 K/mm3 (140-440); Red Cell Distribution Width 24.2 % (13.2-15.2)
[2020-12-09] MEDS ORDERED: NALOXONE 2 MG/2 ML INJ IV PRN (08:00)
[2020-12-09] MEDS ORDERED: fentaNYL-BUPIV 2 MCG/ML-0.125% 200 MCG/100 ML BAG EPIDURAL SCH (08:00)
--- NOTE | 2020-12-09 08:05 | Anesthesia Consultation ---
Anesthesia Consult and Med Hx Date of service: 12/09/20 - Airway Anesthetic Teeth Evaluation: Poor ROM Head & Neck: Adequate Mental/Hyoid Distance: Adequate Mallampati Class: Class II Intubation Access Assessment: Probably Good - Pulmonary Exam CTA: Yes - Cardiac Exam Cardiac Exam: RRR - Pre-Operative Health Status ASA Pre-Surgery Classification: ASA2 Proposed Anesthetic Plan: Epidural - Pre-Anesthesia Comment Pre-Anesthesia Comments: Tracheostomy 2014, ? eclampsia, seizures - Pulmonary Hx Smoking: No Hx Asthma: No Hx Respiratory Symptoms: No (Tracheostomy 2014 ) SOB: No COPD: No Home Oxygen Therapy: No Hx Pneumonia: No Hx Sleep Apnea: No - Cardiovascular System Hx Hypertension: No Hx Coronary Artery Disease: No Hx Heart Attack/AMI: No Hx Angina: No Hx Percutaneous Transluminal Coronary Angioplasty (PTCA): No Hx Cardia Arrhythmia: No Hx Pacemaker: No Hx Internal Defibrillator: No Hx Valvular Heart Disease: No Hx Heart Murmur: No Hx Peripheral Vascular Disease: No - Central Nervous System Hx Neuromuscular Disorder: No Hx Seizures: Yes (2014, ?eclampsia ) CVA: No Hx Back Pain: Yes Hx Psychiatric Problems: No - Gastrointestinal Hx Ulcer: No Hx Gastroesophageal Reflux Disease: Yes - Endocrine Hx Renal Disease: No Hx End Stage Renal Disease: No Hx Cirrhosis: No Hx Liver Disease: No Hx Insulin Dependent Diabetes: No Hx Non-Insulin Dependent Diabetes: No Hx Thyroid Disease: No Hx Hypothyroidism: No Hx Hyperthyroidism: No - Hematic Hx Anemia: No Hx Sickle Cell Disease: No - Other Systems Hx Alcohol Use: No Hx Substance Use: No Hx Cancer: No Hx Obesity: No
--- NOTE | 2020-12-09 08:06 | Progress Note ---
Labor Epidural - Labor Epidural Start Time: 07:27 Stop Time: 07:43 Performed by:: ARLENE ERNST Procedure: Patient is requesting a laboring epidural for laboring pain. Patient IDed, H&P reviewed, all questions and concerns were answered, and consent was signed. Timeout was performed at bedside. Patient in sitting position. Sterile prep and drape was performed. [3] ml of 1% lidocaine skin wheal at L[3]- L [4]. 18- gauge Omega epidural needle was advanced to loss of resistance with saline technique 6cm. Negative CSF negative blood. Epidural catheter advanced to [10] centimeters. [NEGATIVE] Aspiration [NEGATIVE] test dose. Sterile dressing applied. Patient tolerated procedure.
[2020-12-09] MEDS: OXYTOCIN DRIP 30 UNITS/500 ML BAG IV SCH ×2 (09:00→10:35)
--- NOTE | 2020-12-09 09:27 | Procedure Note ---
OB Delivery Note - Delivery Date of Delivery: 12/09/20 Bods Developer: ALEXANDRE CHILDS Estimated blood loss: other (150mL) - Vaginal Delivery presentation: vertex Delivery position: OA Intrapartum events: none Delivery induction: oxytocin Delivery augmentation: rupture of membranes Delivery monitor: external FHT, external uterine Route of delivery: Delivery placenta: manual (manual removal of retained placenta by Dr. Herrera) Delivery cord: 3 umbilical vessels Episiotomy: none Delivery laceration: 1st degree (hemostatic, repair not needed) Anesthesia: epidural Delivery comments: Viable term male delivered over intact perineum and placed on mother's abdomen, spontaneous vigorous crying noted, cord clamped by CNM and cut by FOB after cessation of pulsation. Apgars 8,9. Pitocin IV 30 units infusing post delivery. Elma technique performed and friable 3 vessel umbilical cord noted to be from placenta. Placenta examined as retained and cervix 3cm and closing. Dr. Herrera requested to bedside. Manual removal of retained placenta performed. Cammie care done and fundus firm below umbilicus with scant bleeding n oted. All counts correct. QBL 150mL. Mother and baby left LDR stable. - Infant A at 1 minute: 8 at 5 minutes: 9 Infant Gender: Male (6lbs 10oz)
--- NOTE | 2020-12-09 09:30 | Event Note ---
Date: 12/09/20 Called by youth care worker due to separation of cord from the placenta and retained placenta. Placenta manual removed in its entirety. Gritty texture of uterus noted with uterine sweep with my fingers/hand. Placenta evaluated and appeared to have all parts in the container. Pt was uncomfortable during the process of removal but tolerated the procedure well. Minimal bleeding noted after the removal of the placenta.
[2020-12-09] MEDS ORDERED: IBUPROFEN 800 MG TAB PO PRN (10:18)
[2020-12-09] MEDS ORDERED: ACETAMINOPHEN 325 MG TAB PO PRN (12:37)
[2020-12-09] MEDS ORDERED: BENZOCAINE/MENTHOL 20/0.5% TOP SPRAY 56 GM TP PRN (12:37)
[2020-12-09] MEDS ORDERED: LANOLIN/ZINC/DIMETHICONE (LANSINOH) 7 GM TP PRN (12:37)
[2020-12-09] MEDS ORDERED: PRENATAL VIT27-FE FUMARATE-FOLIC ACID VIT TAB PO SCH (12:37)
[2020-12-09] MEDS ORDERED: diphenhydrAMINE 25 MG CAP PO PRN (12:37)
[2020-12-09] MEDS ORDERED: WITCH HAZEL/ GLYCERIN PAD TP PRN (12:37)
[2020-12-09] MEDS ORDERED: MAGNESIUM HYDROXIDE (MOM) ORAL LIQD UDC PO PRN (12:37)
[2020-12-09] MEDS ORDERED: oxyCODONE /ACETAMINOPHEN 5-325MG TAB PO PRN (12:37)
[2020-12-09 19:42] LABS: Hematocrit 31.7 % (30.3-42.9); Hemoglobin 9.9 gm/dl (10.1-14.3)
[2020-12-09] MEDS: DOCUSATE SODIUM 100 MG CAP PO SCH (22:10)
[2020-12-09] MEDS: FERROUS SULFATE 325 MG TAB PO SCH (22:11)
[2020-12-10] MEDS ORDERED: TETANUS,DIPH,PERTUSS(ACELL) VACCINE 0.5 ML SYRINGE IM ONE (06:00)
--- NOTE | 2020-12-10 07:46 | Discharge Summary ---
Providers - Providers Date of Admission: 12/09/20 10:19 Date of discharge: 12/10/20 (pt desires d/c) Attending physician: MICHAEL LINDQUIST 12/09/20 12:37 Consult to [employer] Supervisor [CONS] Routine Reason For Exam: assistance with , SNS Primary care physician: MICHAEL LINDQUIST Hospitalization Reason for admission: active labor, IUP at term Delivery: Episiotomy: none Laceration: none Incision: normal Other procedures: none complications: none Discharge diagnosis: IUP at term delivered baby: male Hospital course: uncomplicated vaginal delivery Pt w/o complaint VSS FF below umb Lochia small Perineum intact. H&H drop r/t blood loss from delivery No s/sx of anemia. Doing well s/p vag delivery P: d/c today with instructions. RTO 1w for son's circ. Pt will call to replaced by [facility]. Condition at discharge: Good Disposition: DC-01 TO HOME OR SELFCARE - Discharge Diagnoses (1) Spontaneous vaginal delivery Status: Acute Comment: RTO 4 weeks PP Care Plan - Discharge Medications Prescriptions: Lidocain2.5%/Prilocai2.5% [Emla] 5 gm TP PRN #1 tube Ibuprofen [Motrin 800 MG tab] 800 mg PO TID PRN #30 tablet PRN Reason: Pain - Provider Discharge Summary Activity: routine, no sex for 6 weeks, no heavy lifting 4 weeks, no strenuous exercise Diet: routine Instructions: routine Additional instructions: [] Smoking cessation referral if applicable(refer to patient education folder for contact #) [] Refer to [facility] Booklet Call your doctor immediately for: * Fever > 100.5 * Heavy vaginal bleeding ( >1 pad per hour) * Severe persistent headache * Shortness of breath * Reddened, hot, painful area to leg or breast * Drainage or odor from incision. * Keep incision clean and dry at all times and follow doctor's instructions regarding bathing/showering - Follow up plan Follow up: MICHAEL LINDQUIST MD [Primary Care Provider] - 7 Days (Congratulations! Please call [phone] to schedule your visit in 4 weeks and your son's circumcision in 1 week. Bring the EMLA cream with you to his visit. Do NOT use at home. Call with any headache, not relieved with Tylenol, blurred vision, chest pain. Take medication as instructed. Call with any concerns.)
[2020-12-10] MEDS: FERROUS SULFATE 325 MG TAB PO SCH (10:11)
[2020-12-10] MEDS: DOCUSATE SODIUM 100 MG CAP PO SCH (10:11)
--- NOTE | 2020-12-10 14:40 | Post Anesthesia Evaluation ---
- Post Anesthesia Evaluation Patient Participated: Yes Airway Patent: Yes Stable Respiratory Function: Yes Nausea/Vomiting: No Temp > 96.8F: Yes Pain Manageable: Yes Adequeate Hydration: Yes Anesthesia Complications: No Block Receding Appropriately: Yes Patient on Ventilator: No
[2020-12-10 18:36] VITALS: BP 110/75
== END 2020-12-10 11:45 | disposition home or self-care (01) | DRG 767 ==
LOC: TRG 00:05 → APU 00:13 → TRG 01:56 → LD 01:56 → OBSVTOIN 10:19 → OB 11:37
PROVIDERS: ADMIT Obstetrics & Gynecology; ATTEND Obstetrics & Gynecology
PROC: 10E0XZZ Delivery of Products of Conception, External Approach (ICD-10-PCS; principal; 2020-12-09)
PROC: 10D17Z9 Manual Extraction of Products of Conception, Retained, Via Natural or Artificial Opening (ICD-10-PCS; 2020-12-09)
PROC: 00HU33Z Insertion of Infusion Device into Spinal Canal, Percutaneous Approach (ICD-10-PCS; 2020-12-09)
PROC: 3E0R3BZ Introduction of Anesthetic Agent into Spinal Canal, Percutaneous Approach (ICD-10-PCS; 2020-12-09)
PROC: 3E033VJ Introduction of Other Hormone into Peripheral Vein, Percutaneous Approach (ICD-10-PCS; 2020-12-09)
DX: O99.02 Anemia complicating childbirth (principal); O41.03X0 Oligohydramnios, third trimester, not applicable or unspecified; D64.9 Anemia, unspecified; O99.354 Diseases of the nervous system complicating childbirth; O99.62 Diseases of the digestive system complicating childbirth; O70.0 First degree perineal laceration during delivery; Z20.822 Contact with and (suspected) exposure to COVID-19; K21.9 Gastro-esophageal reflux disease without esophagitis; Z93.0 Tracheostomy status; Z56.0 Unemployment, unspecified; Z3A.39 39 weeks gestation of pregnancy; Z37.0 Single live birth; Z82.3 Family history of stroke; Z82.49 Family history of ischemic heart disease and other diseases of the circulatory system
CPT/HCPCS: 36415; 59025; 76815; 76819; 85014; 85018; 85027; 86592; 86850; 86900; 86901; 88307; G0378; J2590; J7120; U0003